=== PATIENT | female | born 1970 | race Two or more races ===

== ENCOUNTER → 2024-09-13 | Outpatient (CLI) | payer MEDICARE, MEDICAID, SELFPAY ==
--- NOTE | 2024-09-13 13:14 | XR_ITS ---
Examination: CT left foot, without contrast. 2-D sagittal reconstructions. 2-D coronal reconstructions. 3-D reconstructions. Date and time of exam:September 13, 2024 1327 hrs. Indications: Medial foot pain several weeks, no trauma CTDI: vol (mGy):4.26 DLP: (mGycm):112 Technique: Multiple 1.25 mm axial sections of the left foot without intravenous contrast 2-D sagittal coronal reconstructions Nodose protocols Findings: Distal tibia and distal fibula intact Calcaneus, cuboid, navicular, cuneiforms intact No Lisfranc tarsometatarsal dislocations No cortical bone destruction No opaque foreign body Mild narrowing first metatarsophalangeal joint Mild bunion deformity Impression: Mild narrowing first metatarsophalangeal joint Mild bunion deformity No fracture Consider MRI foot without contrast follow-up
== END | disposition home or self-care (01) ==
LOC: CCTX 13:02
PROVIDERS: PCP Internal Medicine; Referring Provider Podiatrist; Visit Provider Podiatrist
DX: M21.612 Bunion of left foot (principal); M25.872 Other specified joint disorders, left ankle and foot
CPT/HCPCS: 73700

== ENCOUNTER → 2025-04-02 | Outpatient (CLI) | payer MEDICARE, MEDICAID, SELFPAY ==
--- NOTE | 2025-04-02 | XR_ITS ---
Examination: Cervical spine 3 views Technique one AP lateral coned AP odontoid cervical spine 3 views Date and time: April 02, 2025 1240 hours Comparison July 27, 2010 INDICATIONS: Patient fell 3 months ago with injury to the neck, neck pain. FINDINGS: Reversal normal cervical lordosis. No cervical fracture. Minimal anterolisthesis C4 on C5 Moderate degenerative disc disease C5-C6, advanced degenerative disc disease C6-C7 The odontoid is intact IMPRESSION: Moderate degenerative disc disease C5-C6 Advanced degenerative disc disease C6-C7
== END | disposition home or self-care (01) ==
DX: M50.322 Other cervical disc degeneration at C5-C6 level (principal)
CPT/HCPCS: 72040

== ENCOUNTER 2025-05-26 09:00 | Outpatient (RCR) | payer MEDICARE, MEDICAID, SELFPAY ==
--- NOTE | 2025-05-16 12:52 | PTNOTE_ITS ---
PT OP Initial Eval Patient Information Outpatient Physical Therapy Treatment Date: 05/16/25 Visit Reasons: CERVICAL SPINAL STENOSIS Medical Diagnosis: C/S Spinal Stenosis Treatment Dx #1: Neck Pain Treatment Dx #2: BUE Weakness Start of Care: 05/16/25 Date of Onset: 2000 Smoking Status Smoking Status: Never smoker Initial Assessment Subjective: Pt is a 54 y/o female reports of chronic neck pain (8/10) and BUE weakness R>L worsening lately. Pt's most recent xray showed moderate to advanced DDD of c5-c7 levels. Pt has limitation with gripping, lifting, chores, self care, cooking, cleaning, and performing recreational activities. Pt has seen neurosurgeon in the past and recommended surgical intervention. Objective: C/S AROM: all motions are WFL with end range pain in all plane BUE AROM: all motions are WNL BUE MMTs: L grossly 3+/5 R: grossly 3/5 Scapula MMTs: grossly 3+/5 Palpation: TTP upper trape and levator Special Test: (+) spurling Assessment: Pt demonstrate neck pain with BUE weakness R>L consistent with spinal stenosis leading to difficulty with ADLs. Pt will attempt physical therapy if pain persist Pt will be refer back to provider for further consultation. 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
--- NOTE | 2025-05-22 10:14 | PTNOTE_ITS ---
PT Outpatient Daily Note OP Daily Note Outpatient Physical Therapy Treatment Date: 05/22/25 Visit Reasons: CERVICAL SPINAL STENOSIS Subjective: Pt reports neck pain and stiffness. Objective: Please see flow sheet for ther ex list. Assessment: Pt demonstrates poor activity tolerance with interventions assigned. Plan: Continue with POC. Length of Time (minutes) of Treatment: 30 Minutes [employer] Service Modifier Method I: Divide the number of min of care provided by the [employer]ER/EVIE by the total min of care provided then multiply by 100. If greater than 11 percent modifier is required. Method II: Divide the total time of care provided to patient by 10 (round to the nearest whole number) and add 1 min. to set the minimum time requirement. If treatment total was 60 min., then 10% of 6 min PT CQ modifier applied: CQ Modifier applied Procedure Charges Therapeutic Exercise 30 minutes: Yes
--- NOTE | 2025-05-26 09:22 | PT.ODAYNRPT ---
PT Outpatient Daily Note OP Daily Note Outpatient Physical Therapy Treatment Date: 05/26/25 Visit Reasons: CERVICAL SPINAL STENOSIS Subjective: Pt's neck felt better after last session. Pt mentioned she plans to possibly do neck surgery at the end of the year or in the summer time since she has to drive granddaughter to school. Objective: Please see flow chart for list of ther ex performed Assessment: decrease neck pain post PT session. improved upper trape and levator length after passive stretching Plan: Continue with PT Length of Time (minutes) of Treatment: 30 Minutes Procedure Charges Traction Mechanical: Yes Therapeutic Exercise 15 minutes: Yes
== END 2025-05-27 23:59 | disposition home or self-care (01) ==
LOC: CPTX 09:00
DX: M50.322 Other cervical disc degeneration at C5-C6 level (principal)
CPT/HCPCS: 97012; 97110; 97162

== ENCOUNTER 2025-06-18 11:00 | Outpatient (RCR) | payer MEDICARE, MEDICAID, SELFPAY ==
--- NOTE | 2025-05-28 11:16 | PT.ODAYNRPT ---
PT Outpatient Daily Note OP Daily Note Outpatient Physical Therapy Treatment Date: 05/28/25 Visit Reasons: Cervical spinal stenosis Subjective: Pt's neck feels a little better. 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 Objective: Please see flow chart for list of ther ex performed Assessment: difficulty with nerve floss due to arm pain. traction continue to help decrease neck pain Plan: Continue with PT Length of Time (minutes) of Treatment: 30 Minutes Procedure Charges Traction Mechanical: Yes Therapeutic Exercise 15 minutes: Yes
--- NOTE | 2025-06-03 09:36 | PT.ODAYNRPT ---
PT Outpatient Daily Note OP Daily Note Outpatient Physical Therapy Treatment Date: 06/03/25 Visit Reasons: Cervical spinal stenosis Subjective: Pt's neck is okay. Pt does not like the traction and it seems to irritate the neck vs helping Objective: Please see flow chart for list of ther ex performed Assessment: no traction used today. Pt tolerate exercises and continues to improve with flexibility in the neck musculatures Plan: Continue with PT Length of Time (minutes) of Treatment: 30 Minutes Procedure Charges Therapeutic Exercise 30 minutes: Yes
--- NOTE | 2025-06-18 13:59 | PT.ODS1RPT ---
PT OP Progress/Discharge Note Date of Service: 06/18/25 Progress Note/DC Note Progress Note/Discharge Note: DC Note Patient Information Visit Reasons: Cervical spinal stenosis Medical Diagnosis: C/S spinal stenosis Treatment Dx #1: Neck Pain Service Discharge Date: 06/18/25 Status Subjective: Pt continues to experience neck pain with BUE weakness leading to difficulty with ADLs. Pt will like to discontinue physical therapy and follow up with PCP for further consultation. Objective: C/S AROM: all motions are WFL with end range pain in all plane BUE AROM: all motions are WNL BUE MMTs: grossly 3+/5 Scapula MMTs: grossly 3+/5 Special Test (+) spurling Assessment: Pt demonstrate functional c/s mobility, however, minimal change in pain and strength leading to difficulty with ADLs. Pt will no longer benefit from physical therapy and recommend to follow up with PCP. Pt was instructed on HEP last session and educated to continue exercises to maintain overall mobility. Pt performed all exercises safely, thank you for your referrals. Plan: D/C home with HEP and follow up with PCP Procedure Charges Therapeutic Exercise 30 minutes: Yes
== END 2025-06-27 23:59 | disposition home or self-care (01) ==
LOC: CPTX 11:00
DX: M50.322 Other cervical disc degeneration at C5-C6 level (principal); M48.02 Spinal stenosis, cervical region
CPT/HCPCS: 97012; 97110

== ENCOUNTER → 2025-06-30 | Outpatient (CLI) | payer MEDICARE, MEDICAID, SELFPAY ==
--- NOTE | 2025-06-30 10:48 | XR_ITS ---
Examination: Abdomen AP single view Technique: AP portable supine abdomen, single view Exam date and time: June 30, 2025, 11:53 a.m. INDICATIONS: Abdominal pain beginning 3 weeks ago FINDINGS: Moderate to large amount of stool in the right colon No obstruction No free air. Osseous structures are intact IMPRESSION: Moderate to large amount of stool in the colon
== END | disposition home or self-care (01) ==
LOC: CDIM 10:39
DX: K59.00 Constipation, unspecified (principal)
CPT/HCPCS: 74018